=== PATIENT | male | born 1970 | race American Indian/Alaskan Native ===

== ENCOUNTER 2017-08-20 02:35 | Emergency (ER) | payer OTHER ==
[2017-08-20 02:51] VITALS: BP 143/88
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
[2017-08-20] MEDS: TORADOL IM ONE (05:45)
== END 2017-08-20 06:05 | disposition home or self-care (01) ==
LOC: ED 02:35
DX: S16.1XXA Strain of muscle, fascia and tendon at neck level, initial encounter (principal); S39.012A Strain of muscle, fascia and tendon of lower back, initial encounter; V43.52XA Car driver injured in collision with other type car in traffic accident, initial encounter; Y93.89 Activity, other specified; Y92.89 Other specified places as the place of occurrence of the external cause; Y99.8 Other external cause status
CPT/HCPCS: 96372; 99282; J1885